=== PATIENT | male | born 1940 | race Hispanic/Latino ===

== ENCOUNTER 2023-08-04 12:37 | Outpatient (CLI) | payer MEDICARE | END 2023-08-04 12:38 | disposition home or self-care (01) | LOC: CSHCP 12:37 | PROVIDERS: ATTEND Internal Medicine | DX: J41.0 Simple chronic bronchitis (principal) | CPT/HCPCS: 94060; 94664; 94726; 94729; 94760 ==

== ENCOUNTER 2023-11-13 11:45 | Observation (INO) | payer MEDICARE ==
[2023-11-13] MEDS ORDERED: Ondansetron ODT 4 MG TAB ONE (12:31)
[2023-11-13] MEDS ORDERED: Meclizine HCl 25 MG TAB ONE (12:31)
[2023-11-13 12:51] LABS: #Basophils 0.04 10x3/uL (0.0-0.2); #Eosinphils 0.15 10x3/uL (0.0-0.5); #Monocytes 0.63 10x3/uL (0.0-1.1); #Neutrophils 7.56 10x3/uL (1.5-8.4); %Basophils 0.4 % (0.0-2.0); %Eosinophils 1.4 % (0.0-6.0); %Lymphocytes 22.5 % (18.0-47.0); %Monocytes 5.8 % (0.0-10.0); %Neutrophils 69.3 % (40.0-75.0); ALT (SGPT) 16 U/L (8-55); AST (SGOT) 19 U/L (5-34); Albumin 4.3 g/dL (3.4-4.8); Alkaline Phosphatase 70 U/L (40-110); Anion Gap 13 mmol/L (10-20); BUN (Urea Nitrogen) 22 mg/dL (8.4-25.7); Bilirubin, Total 0.7 mg/dL (0.2-1.2); Calc. Creatinine Clearance 0 mL/min (70-130); Calcium 9.5 mg/dL (7.8-10.44); Carbon Dioxide 23 mmol/L (23-31); Chloride 109 mmol/L (98-107); Estimated GFR 50; Globulin 3.1 g/dL (2.4-3.5); Glucose 117 mg/dL (83-110); Hematocrit 48.1 % (38.8-50.0); Hemoglobin 16.6 g/dL (13.5-17.5); Mean Corpuscular HGB CONC 34.5 g/dL (32.0-36.0); Mean Corpuscular Hemoglobin 32.4 pg (27.0-33.0); Mean Corpuscular Volume 93.8 fL (81.2-95.1); Mean Platelet Volume 10.5 fL (7.4-10.4); Platelet Count 215 10x3/uL (150-450); Potassium 4.9 mmol/L (3.5-5.1); Protein, Total 7.4 g/dL (5.8-8.1); Red Blood Cell (RBC) Count 5.13 10x6/uL (4.32-5.72); Sodium 140 mmol/L (136-145); White Blood Cell (WBC) Count 10.9 10x3/uL (3.5-10.5)
[2023-11-13 12:57] LABS: Troponin I Less than 0.010 ng/mL (< 0.028)
[2023-11-13] MEDS ORDERED: Ondansetron ODT 4 MG TAB PO PRN (15:27)
[2023-11-13] MEDS ORDERED: Acetaminophen 325 MG TAB PO PRN (15:27)
[2023-11-13 16:22] VITALS: BMI 26.2
[2023-11-13] MEDS: Aspirin 81 mg Enteric Coated Tablet PO SCH ×2 (18:30→18:31)
[2023-11-13] MEDS ORDERED: Cyclobenzaprine 10 MG TAB PO PRN (18:38)
[2023-11-14 05:01] LABS: #Basophils 0.05 10x3/uL (0.0-0.2); #Monocytes 0.78 10x3/uL (0.0-1.1); #Neutrophils 4.97 10x3/uL (1.5-8.4); %Basophils 0.5 % (0.0-2.0); %Lymphocytes 37.5 % (18.0-47.0); %Monocytes 7.8 % (0.0-10.0); %Neutrophils 49.8 % (40.0-75.0); Hematocrit 44.5 % (38.8-50.0); Hemoglobin 15.1 g/dL (13.5-17.5); Mean Corpuscular HGB CONC 33.9 g/dL (32.0-36.0); Mean Corpuscular Hemoglobin 31.7 pg (27.0-33.0); Mean Corpuscular Volume 93.3 fL (81.2-95.1); Mean Platelet Volume 10.1 fL (7.4-10.4); Platelet Count 193 10x3/uL (150-450); RBC Distribution Width 14.1 % (11.5-14.5); Red Blood Cell (RBC) Count 4.77 10x6/uL (4.32-5.72)
[2023-11-14 05:14] LABS: Anion Gap 12 mmol/L (10-20); BUN (Urea Nitrogen) 22 mg/dL (8.4-25.7); Calc. Creatinine Clearance 48 mL/min (70-130); Calcium 9.3 mg/dL (7.8-10.44); Carbon Dioxide 25 mmol/L (23-31); Cardiac Risk 5.7 (Less than 4.5); Chloride 109 mmol/L (98-107); Cholesterol 155 mg/dl (< 200 Desired); Estimated GFR 48; Glucose 106 mg/dL (83-110); HDL Cholesterol 27 mg/dL (>60 Neg Risk); LDL Cholesterol, Calculated 102 mg/dL; Potassium 4.5 mmol/L (3.5-5.1); Sodium 141 mmol/L (136-145); Triglycerides 130 mg/dL (Less than 150)
[2023-11-14] MEDS: Levothyroxine Sodium 50 MCG TAB PO SCH (05:35)
[2023-11-14] MEDS: Meloxicam 7.5 MG TAB PO SCH (10:10)
[2023-11-14] MEDS: Tamsulosin HCl 0.4 MG CAP PO SCH (10:11)
[2023-11-14] MEDS: BuPROPion XL 150 MG ER.TAB PO SCH (10:11)
[2023-11-14] MEDS: Meclizine HCl 25 MG TAB PO PRN (10:12)
[2023-11-14 10:20] VITALS: BP 116/66; TEMP 97.8
== END 2023-11-14 11:00 | disposition home or self-care (01) ==
LOC: CSHERS 11:45 → CSHTELE 15:49
PROVIDERS: ADMIT Internal Medicine; ATTEND Internal Medicine
DX: R11.2 Nausea with vomiting, unspecified (principal); R42 Dizziness and giddiness; N40.0 Benign prostatic hyperplasia without lower urinary tract symptoms; E03.9 Hypothyroidism, unspecified; Z79.890 Hormone replacement therapy
CPT/HCPCS: 70450; 70551; 80048; 80053; 80061; 82962; 84484; 85025 ×2; 93005; 99285; G0378 ×3; Q0162; 36415; 36416